=== PATIENT | female | born 1940 | race American Indian/Alaskan Native ===

== ENCOUNTER 2016-12-17 10:54 | Emergency (ER) | payer MEDICARE ==
[2016-12-17 12:05] VITALS: BP 148/80
--- NOTE | 2016-12-17 13:25 | Emergency Department Report ---
HPI - General Chief Complaint: Sore Throat Time Seen by Provider: 12/17/16 12:57 - HPI HPI: 76-year-old female presents to ED complaining of sore throat 3 days. Patient states that all pain is a throbbing aching type pain. Patient also states she is sinus headache for the past 4 days. Patient states she has a frontal pressure type headache and a stuffy nose. Patient denies fevers/chills/nausea/vomiting/abdominal pain/chest pain. Shortness of breath/cough/runny nose ED Past Medical Hx - Past Medical History Previous Medical History?: Yes Hx Hypertension: Yes Additional medical history: vertigo - Surgical History Past Surgical History?: No - Social History Smoking Status: Never Smoker Substance Use Type: None - Medications Home Medications: Home Medications Medication Instructions Recorded Confirmed Last Taken Type Amoxicillin 500 mg PO BID #10 capsule 12/17/16 Unknown Rx Loratadine [Claritin] 10 mg PO DAILY #20 tablet 12/17/16 Unknown Rx Pseudoephedrine HCl [Nasal Decon 1 applic PO BID #1 pump 12/17/16 Unknown Rx (Pseudoephedrine)] ED Review of Systems ROS: Stated complaint: SORE THROAT Other details as noted in HPI Constitutional: denies: chills, fever Eyes: denies: eye pain, eye discharge, vision change ENT: denies: ear pain, throat pain Respiratory: denies: cough, shortness of breath, wheezing Cardiovascular: denies: chest pain, palpitations Endocrine: no symptoms reported Gastrointestinal: denies: abdominal pain, nausea, vomiting, diarrhea, constipation Genitourinary: denies: urgency, dysuria, frequency, hematuria, discharge Musculoskeletal: denies: back pain, joint swelling, arthralgia Skin: denies: rash, lesions Neurological: denies: headache, weakness, paresthesias Psychiatric: denies: anxiety, depression Hematological/Lymphatic: denies: easy bleeding, easy bruising Physical Exam - Physical Exam Vital Signs: Vital Signs 12/17/16 11:59 Temperature 98.7 F Pulse Rate 70 Respiratory 18 Rate Blood Pressure 148/80 O2 Sat by Pulse 100 Oximetry Physical Exam: GENERAL: Alert and oriented x3, no apparent distress, Normal Gait, atraumatic. HEAD: Head is normocephalic and a-traumatic. EYES: Extra ocular muscles are intact. Pupils are equal, round, and reactive to light and accommodation. EARS: symetrical, atraumatic, non tender, ear canal clear and moderate cerumen, tympanic membrance non inflamed. There is fluid behind tympanic membrane bilaterally gross auditory nml bilaterally. NOSE: Nose symetrical, Nontender,Nares appeared normal. Maxillary sinus tenderness. Frontal tenderness. MOUTH:Mouth is well hydrated and without lesions. Tonsils nonerythematous or swollen, Uvula midline, Tongue not elevated. Mucous membranes are moist. Posterior pharynx clear, no exudate or lesions. Patent airways. NECK: Supple. Non edematous, No carotid bruits. No lymphadenopathy or thyromegaly. No C-spine tenderness LUNGS: Symetrical with respiration, No wheezing, no rales or crackles, CTAB. HEART: S1, S2 present, regular rate and rhythm without murmur, no rubs, no gallops. EXTREMITIES/MUSCULOSKELETAL: No cyanosis, clubbing, rash, lesions or edema. Full ROM bilaterally. SKIN: Warm and dry, No lesions, No ulceration or induration present. ED Course Vital Signs 12/17/16 11:59 Temperature 98.7 F Pulse Rate 70 Respiratory 18 Rate Blood Pressure 148/80 O2 Sat by Pulse 100 Oximetry ED Medical Decision Making - Medical Decision Making 76-year-old female presents with sinusitis ED course: Rapid strep is negative throat culture pending. Discussed with patient Discussed the patient take medication as discussed . Discussed follow-up with primary care doctor. Discussed the patient to take [id number] symptomatic relief medication. Vital signs are normal. Patient is acute or respiratory distress. Patient is not ill-appearing. Critical care attestation.: If time is entered above; I have spent that time in minutes in the direct care of this critically ill patient, excluding procedure time. ED Disposition Clinical Impression: Sinusitis, acute maxillary Qualifiers: Recurrence: non-recurrent Qualified Code(s): J01.00 - Acute maxillary sinusitis , unspecified Pharyngitis Qualifiers: Pharyngitis/tonsillitis etiology: unspecified etiology Qualified Code(s): J02.9 - Acute pharyngitis, unspecified Disposition: DISCHARGED TO HOME OR SELFCARE Is pt being admited?: No Does the pt Need Aspirin: No Condition: Stable Instructions: Sinusitis (ED), Pharyngitis (ED) Additional Instructions: Follow-up with your primary care Dr. Quiñonez in the next 3-5 days. Take medication as prescribed. Prescriptions: Amoxicillin 500 mg PO BID #10 capsule Loratadine [Claritin] 10 mg PO DAILY #20 tablet Pseudoephedrine HCl [Nasal Decon (Pseudoephedrine)] 1 applic PO BID #1 pump Referrals: ROSALVA ASCENCIO MD [Primary Care Provider] - 3-5 Days Forms: Work/School Release Form(ED) Time of Disposition: 13:26
== END 2016-12-17 13:36 | disposition home or self-care (01) ==
LOC: ED 10:54
DX: J01.00 Acute maxillary sinusitis, unspecified (principal); J02.9 Acute pharyngitis, unspecified; I10 Essential (primary) hypertension
CPT/HCPCS: 87116; 87430; 99282

== ENCOUNTER 2019-07-12 07:56 | Outpatient (CLI) | payer MEDICARE ==
--- NOTE | 2019-07-12 10:34 | Mammography Report ---
DIGITAL SCREENING MAMMOGRAM WITH CAD, 07/12/2019 INDICATION: Routine screening mammography. TECHNIQUE: Digital bilateral 2D mammography was obtained in the craniocaudal and mediolateral obliq ue projections. This examination was interpreted with the benefit of Computer-Aided Detection analysi s. COMPARISON: 06/30/2018 FINDINGS: Breast Density: There are scattered areas of fibroglandular density. There is no evidence of dominant mass, suspicious calcifications or architectural distortion in eithe r breast. IMPRESSION: No mammographic evidence of malignancy. Follow up recommendation: Routine yearly BI-RADS Category 1: Negative. A "normal" or negative report should not discourage follow up or biopsy of a clinically significant f inding. A written summary of these findings will be mailed to the patient. The patient will be entered into a mammography reporting system which will generate a reminder letter for the patient's next appointmen t at the appropriate interval. The [employer] recommends yearly mammograms starting at age 40 and continuing as l rosina as a woman is in good health. Breast MRI is recommended for women with an approximate 20-25% or greater lifetime risk of breast cancer, including women with a strong family history of breast or ova naveed cancer or who have been treated for Hodgkin's disease. Signer Name: Parveen Osborne MD Signed: 07/12/2019 10:30 AM Workstation Name: [id number]
== END 2019-07-12 07:57 | disposition home or self-care (01) ==
LOC: SPVWC 07:56
PROVIDERS: ATTEND Family Medicine
DX: Z12.31 Encounter for screening mammogram for malignant neoplasm of breast (principal)
CPT/HCPCS: 77067

== ENCOUNTER 2020-07-14 09:24 | Outpatient (CLI) | payer MEDICARE ==
--- NOTE | 2020-07-14 17:05 | Mammography Report ---
DIGITAL SCREENING MAMMOGRAM WITH CAD, 07/14/2020 CLINICAL INFORMATION / INDICATION: Routine screening mammography. TECHNIQUE: Digital bilateral 2D mammography was obtained in the craniocaudal and mediolateral obliqu e projections. This examination was interpreted with the benefit of Computer-Aided Detection analysis . COMPARISON: 07/12/2019, 06/30/2018 FINDINGS: Breast Density: There are scattered areas of fibroglandular density. No dominant mass, suspicious calcifications, or architectural distortion in either breast. Bilateral benign calcifications and nodules are stable. IMPRESSION: No mammographic evidence of malignancy. Follow up recommendation: Routine yearly BI-RADS Category 2: Benign. A "normal" or negative report should not discourage follow up or biopsy of a clinically significant f inding. A written summary of these findings will be mailed to the patient. The patient will be entered into a mammography reporting system which will generate a reminder letter for the patient's next appointmen t at the appropriate interval. The [employer] recommends yearly mammograms starting at age 40 and continuing as l rosina as a woman is in good health. Breast MRI is recommended for women with an approximate 20-25% or greater lifetime risk of breast cancer, including women with a strong family history of breast or ova naveed cancer or who have been treated for Hodgkin's disease. Signer Name: Carlos Eduardo Baca MD Signed: 07/14/2020 5:01 PM Workstation Name: [id number]
== END 2020-07-14 09:25 | disposition home or self-care (01) ==
LOC: SPVWC 09:24
PROVIDERS: ATTEND Family Medicine
DX: Z12.31 Encounter for screening mammogram for malignant neoplasm of breast (principal); N64.89 Other specified disorders of breast; N63.10 Unspecified lump in the right breast, unspecified quadrant; N63.20 Unspecified lump in the left breast, unspecified quadrant
CPT/HCPCS: 77067

== ENCOUNTER 2021-07-30 09:46 | Outpatient (CLI) | payer MEDICARE ==
--- NOTE | 2021-07-31 16:41 | Mammography Report ---
DIGITAL SCREENING MAMMOGRAM WITH CAD, 07/30/2021 CLINICAL INFORMATION / INDICATION: Routine screening mammography. SCREENING MAMMO Z12.31 TECHNIQUE: Digital bilateral 2D mammography was obtained in the craniocaudal and mediolateral obliqu e projections. This examination was interpreted with the benefit of Computer-Aided Detection analysis . COMPARISON: 07/14/2020, 07/12/2019 FINDINGS: Breast Density: There are scattered areas of fibroglandular density. No dominant mass, suspicious calcifications, or architectural distortion in either breast. No interval change. IMPRESSION: No mammographic evidence of malignancy. Follow up recommendation: Routine yearly BI-RADS Category 1: Negative. A "normal" or negative report should not discourage follow up or biopsy of a clinically significant f inding. A written summary of these findings will be mailed to the patient. The patient will be entered into a mammography reporting system which will generate a reminder letter for the patient's next appointmen t at the appropriate interval. The [employer] recommends yearly mammograms starting at age 40 and continuing as l rosina as a woman is in good health. Breast MRI is recommended for women with an approximate 20-25% or greater lifetime risk of breast cancer, including women with a strong family history of breast or ova naveed cancer or who have been treated for Hodgkin's disease. Signer Name: Jennifer Brewster MD Signed: 07/31/2021 4:37 PM Workstation Name: [id number]
== END 2021-07-30 09:47 | disposition home or self-care (01) ==
LOC: SPVWC 09:46
PROVIDERS: ATTEND Family Medicine
DX: Z12.31 Encounter for screening mammogram for malignant neoplasm of breast (principal)
CPT/HCPCS: 77067